=== PATIENT | female | born 1980 | race Native Hawaiian/Other Pacific Islander ===

== ENCOUNTER 2017-05-09 12:31 | Emergency (ER) | payer MEDICAID ==
[2017-05-09 12:43] VITALS: O2SAT 100
[2017-05-09] MEDS ORDERED: Sodium Chloride 0.9% 1,000 ML IV STA (14:24)
[2017-05-09] MEDS ORDERED: Sodium Chloride 0.9% 250 ML IV ONE (14:40)
[2017-05-09 14:45] LABS: BASO # 0.1 K/uL (0.0-0.2); BASO % 0.8 % (0.0-2.0); EOS # 0.1 K/uL (0.0-0.7); EOS % 0.5 % (0.0-4.0); HEMATOCRIT 41.2 % (34.0-47.0); LYMPH # 2.3 K/uL (1.0-4.3); LYMPH % 22.6 % (20.0-40.0); MEAN CELL VOLUME 79.1 fL (81.0-99.0); MEAN CORPUSCULAR HEMOGLOBIN 26.4 pg (27.0-31.0); MEAN CORPUSCULAR HGB CONC 33.4 g/dL (33.0-37.0); MEAN PLATELET VOLUME 8.6 fL (7.2-11.7); MONO # 0.3 K/uL (0.0-0.8); MONO % 2.9 % (0.0-10.0); RED CELL DISTRIBUTION WIDTH 13.7 % (11.5-14.5)
[2017-05-09 14:56] LABS: INR 1.1
[2017-05-09 14:58] LABS: CHLORIDE 101 mmol/L (98-107); SODIUM 139 mmol/L (132-148)
[2017-05-09 15:01] LABS: ALB/GLOB RATIO 1.1 (1.0-2.1); ALKALINE PHOSPHATASE 66 U/L (38-126); ALT/SGPT 44 U/L (9-52); AST/SGOT 22 U/L (14-36); BILIRUBIN,TOTAL 0.7 mg/dL (0.2-1.3); BLOOD UREA NITROGEN 14 mg/dL (7-17); CALCIUM 9.9 mg/dl (8.6-10.4); CARBON DIOXIDE 23 mmol/L (22-30); GFR AFRICAN-AMERICAN > 60; GLUCOSE,RANDOM 83 mg/dL (65-105); TOTAL PROTEIN 9.6 g/dL (6.3-8.3)
[2017-05-09 15:03] LABS: RBC URINE 11 /hpf (0-3); URINE BILIRUBIN NEGATIVE (NEGATIVE); URINE BLOOD 2+ (NEGATIVE); URINE COLOR Yellow (YELLOW); URINE GLUCOSE (UA) NORMAL (Normal); URINE KETONE TRACE mg/dL (NEGATIVE); URINE LEUKOCYTE ESTERASE NEG Leu/uL (Negative); URINE PROTEIN NEGATIVE (NEGATIVE); URINE UROBILINOGEN NORMAL mg/dL (0.2-1.0); WBC URINE 2 /hpf (0-5)
[2017-05-09] MEDS ORDERED: Iodixanol 320 MG/ML 100 ML BOTTLE IV ONE (16:08)
--- NOTE | 2017-05-09 17:11 | C.PDOC ---
History Of Present Illness 37 y/o female presents to ED for evaluation of chest pressure, dizziness, and vomiting. Pt states that she does not feel well. Otherwise, denies shortness of breath, headache, visual changes, abdominal pain, diarrhea, fever, or chills. Time Seen by Provider: 05/09/17 13:43 Chief Complaint (Nursing): Dizziness/Lightheaded History Per: Patient History/Exam Limitations: no limitations Onset/Duration Of Symptoms: Days Current Symptoms Are (Timing): Still Present Recent travel outside of the [place]: No Additional History Per: Patient Past Medical History Reviewed: Historical Data, Nursing Documentation, Vital Signs Vital Signs: Last Vital Signs Temp 98.1 F 05/09/17 17:24 Pulse 74 05/09/17 17:24 Resp 21 05/09/17 17:24 BP 112/78 05/09/17 17:24 Pulse Ox 100 05/09/17 17:56 - Medical History PMH: Cardia Arrhythmia (UNKNOWN. NO MEDS) Denies: Chronic Kidney Disease Surgical History: Appendectomy (04/01/2016) - [facility] Procedures RESECTION OF APPENDIX, PERCUTANEOUS ENDOSCOPIC APPROACH (04/01/16) Family History: States: Unknown Family Hx - Social History Hx Alcohol Use: No Hx Substance Use: No - Immunization History Hx Tetanus Toxoid Vaccination: No Hx Influenza Vaccination: No Hx Pneumococcal Vaccination: No Review Of Systems Except As Marked, All Systems Reviewed And Found Negative. Constitutional: Negative for: Fever, Chills Cardiovascular: Positive for: Chest Pain (pressure). Negative for: Palpitations , Edema, Light Headedness Respiratory: Negative for: Cough, Shortness of Breath Gastrointestinal: Positive for: Vomiting. Negative for: Abdominal Pain, Diarrhea, Constipation Genitourinary: Negative for: Dysuria, Frequency, Hematuria Neurological: Positive for: Dizziness. Negative for: Headache Physical Exam - Physical Exam Appears: Non-toxic, No Acute Distress Skin: Normal Color, Warm, Dry Head: Atraumatic, Normacephalic Eye(s): bilateral: Normal Inspection Oral Mucosa: Moist Neck: Normal ROM, Supple Chest: Symmetrical Cardiovascular: Rhythm Regular, No Murmur Respiratory: Normal Breath Sounds, No Rales, No Rhonchi, No Wheezing Gastrointestinal/Abdominal: Soft, No Tenderness Back: No CVA Tenderness Extremity: Normal ROM Neurological/Psych: Oriented x3, Normal Speech ED Course And Treatment - Laboratory Results Result Diagrams: 05/09/17 14:38 05/09/17 14:38 ECG: Interpreted By Me, Viewed By Me ECG Rhythm: Sinus Rhythm ECG Interpretation: No Acute Changes Interpretation Of ECG: incomplete RBBB. Diffuse T wave changes. Rate From EC (bpm) O2 Sat by Pulse Oximetry: 100 (RA) Pulse Ox Interpretation: Normal - CT Scan/US Angio chest CT Other Rad Studies (CT/US): Read By Radiologist, Radiology Report Reviewed CT/US Interpretation: Accession No. : [id number]. Patient Name / ID : SUN MURCIA / [id number]. Exam Date : 05/09/2017 16:43:05 ( Approved ). Study Comment : Sex / Age : F / 37Y. Creator : Madie Roper MD. Dictator : Madie Roper MD. Cyanide Case Hardener : Tomography Technologist : Madie Roper MD. Approver2 : Report Date : 05/09/2017 17:00:31. My Comment : . PROCEDURE: CT Chest with contrast (Pulmonary Angiogram). HISTORY: dizzy, chest pain, elevated D-dimer. COMPARISON: None available. TECHNIQUE: Axial computed tomography images were obtained of the chest in the pulmonary arterial phase of enhancement. Coronal and sagittal reformatted images were created and reviewed. Intravenous contrast dose: 100 cc Omnipaque 320. Radiation dose: Total exam DLP = 470.14 mGy-cm. This CT exam was performed using one or more of the following dose reduction techniques: Automated exposure control, adjustment of the mA and/or kV according to patient size, and/or use of iterative reconstruction technique. FINDINGS: PULMONARY ARTERIES: There are no filling defects in the pulmonary arteries to suggest acute pulmonary embolism. AORTA: No aortic aneurysm or aortic dissection. LUNGS: The lungs are well inflated and clear. No nodule, mass or pulmonary consolidation. PLEURAL SPACES: No effusion orpneumothorax. HEART: The heart is normal in size. No pericardial effusion. LYMPH NODES: No pathologic lymphadenopathy. BONES, CHEST WALL: Within normal limits for the patient's age. No fracture or destructive lesion. OTHER FINDINGS: Unremarkable. IMPRESSION: No acute pulmonary embolism. Clear lungs. Head CT Other Rad Studies (CT/US): Read By Radiologist, Radiology Report Reviewed CT/US Interpretation: Accession No. : [id number]. Patient Name / ID : SUN MURCIA / [id number]. Exam Date : 05/09/2017 16:37:03 ( Approved ). Study Comment : Sex / Age : F / 37Y. Creator : Sun Tavares MD. Dictator : Sun Tavares MD. Cyanide Case Hardener : Tomography Technologist : Sun Tavares MD. Approver2 : Report Date : 05/09/2017 16:49:15. My Comment : . PROCEDURE: CT HEAD WITHOUT CONTRAST. HISTORY: dizzy. COMPARISON: Noncontrast head CT performed 08/01/12. TECHNIQUE: Axial computed tomography images were obtained through the head/brain without intravenous contrast. Radiation dose: Total exam DLP = 840.30 mGy-cm. This CT exam was performed using one or more of the following dose reduction techniques: Automated exposure control, adjustment of the mA and/or kV according to patient size, and/ or use of iterative reconstruction technique. FINDINGS: HEMORRHAGE: No intracranial hemorrhage. BRAIN: No mass effect or edema. The sheridan-white matter differentiation appears intact. VENTRICLES: No hydrocephalus. CALVARIUM: Unremarkable. PARANASAL SINUSES: Unremarkable as visualized. No significant inflammatory changes. MASTOID AIR CELLS: Unremarkable as visualized. No inflammatory changes. OTHER FINDINGS: None. IMPRESSION: No acute intracranial pathology identified. Progress Note: Blood work, UA, head CT, angio chest CT ordered and reviewed. Patient was given Meclizine and IV fluids. On re-eval, pt reports feeling better. Patient is now asymptomatic, denies any neurologic complaints, is ambulating well, and is tolerating PO. Patient will be discharged home on Antivert. Patient was instructed to follow up with physician/clinic, and to return to the ER in 1-2 days if no follow up can be arranged. Disposition - Disposition Referrals: Elizabeth Whitaker MD [Non-Staff] - Disposition: HOME/ ROUTINE Disposition Time: 17:11 Condition: STABLE Additional Instructions: Follow up with your PMD within 1-2 days. Return to ED if feel worse. Prescriptions: Meclizine [Meclizine*] 25 mg PO Q6 #30 tab Instructions: Dizziness (ED) Forms: [employer] (Yi) - Clinical Impression Clinical Impression: Dizziness - PA / SURGICAL FORCEPS FABRICATOR / Resident Statement MD/DO has reviewed & agrees with the documentation as recorded. - Scribe Statement The provider has reviewed the documentation as recorded by the Scribe Pipe Lundberg All medical record entries made by the Scribe were at my direction and personally dictated by me. I have reviewed the chart and agree that the record accurately reflects my personal performance of the history, physical exam, medical decision making, and the department course for this patient. I have also personally directed, reviewed, and agree with the discharge instructions and disposition.
[2017-05-09 17:25] VITALS: BP 112/78; PULSE 74; RESP 21; TEMP 98.1
--- NOTE | 2017-05-09 20:03 | CT ---
PROCEDURE: CT HEAD WITHOUT CONTRAST. HISTORY: dizzy COMPARISON: Noncontrast head CT performed 08/01/12 TECHNIQUE: Axial computed tomography images were obtained through the head/brain without intravenous contrast. Radiation dose: Total exam DLP = 840.30 mGy-cm. This CT exam was performed using one or more of the following dose reduction techniques: Automated exposure control, adjustment of the mA and/or kV according to patient size, and/or use of iterative reconstruction technique. FINDINGS: HEMORRHAGE: No intracranial hemorrhage. BRAIN: No mass effect or edema. The sheridan-white matter differentiation appears intact. VENTRICLES: No hydrocephalus. CALVARIUM: Unremarkable. PARANASAL SINUSES: Unremarkable as visualized. No significant inflammatory changes. MASTOID AIR CELLS: Unremarkable as visualized. No inflammatory changes. OTHER FINDINGS: None. IMPRESSION: No acute intracranial pathology identified.
--- NOTE | 2017-05-09 20:03 | CT ---
PROCEDURE: CT Chest with contrast (Pulmonary Angiogram) HISTORY: dizzy, chest pain, elevated D-dimer COMPARISON: None available. TECHNIQUE: Axial computed tomography images were obtained of the chest in the pulmonary arterial phase of enhancement. Coronal and sagittal reformatted images were created and reviewed. Intravenous contrast dose: 100 cc Omnipaque 320 Radiation dose: Total exam DLP = 470.14 mGy-cm. This CT exam was performed using one or more of the following dose reduction techniques: Automated exposure control, adjustment of the mA and/or kV according to patient size, and/or use of iterative reconstruction technique. FINDINGS: PULMONARY ARTERIES: There are no filling defects in the pulmonary arteries to suggest acute pulmonary embolism. AORTA: No aortic aneurysm or aortic dissection. LUNGS: The lungs are well inflated and clear. No nodule, mass or pulmonary consolidation. PLEURAL SPACES: No effusion orpneumothorax. HEART: The heart is normal in size. No pericardial effusion. LYMPH NODES: No pathologic lymphadenopathy. BONES, CHEST WALL: Within normal limits for the patient's age. No fracture or destructive lesion OTHER FINDINGS: Unremarkable. IMPRESSION: No acute pulmonary embolism. Clear lungs.
== END 2017-05-09 17:30 | disposition home or self-care (01) ==
LOC: C.ER 12:31
DX: R42 Dizziness and giddiness (principal)
CPT/HCPCS: 70450; 71275; 80053; 81001; 82550; 82553; 82948; 84484; 84703; 85025; 85378; 85610; 85730; 96360; 99285; J7040; Q9967

== ENCOUNTER 2018-08-22 18:56 | Emergency (ER) | payer MEDICAID | END 2018-08-22 20:31 | disposition home or self-care (01) | LOC: C.ER 18:56 ==